=== PATIENT | female | born 1945 | race Caucasian/White ===

== ENCOUNTER 2021-01-30 11:47 | Inpatient (IN) ==
[2021-01-30 15:25] LABS: Basophils # 0.1 K/mcL (0.0-0.2); Basophils % 0.3 %; Hematocrit 26.7 % (35.3-44.9); Hemoglobin 8.2 g/dL (11.5-15.4); Immature Granulocytes % 2.4 % (0-4); Lymphocytes # 1.5 K/mcL (0.6-4.6); Lymphocytes % 7.3 %; Mean Corpuscular HGB Conc 30.7 g/dL (31.6-35.5); Mean Corpuscular Hemoglobin 26.4 pg (28.0-33.3); Mean Corpuscular Volume 85.9 fL (83.0-100.0); Mean Platelet Volume 10.7 fL (9.4-12.4); Monocytes # 2.3 K/mcL (0.0-1.3); Monocytes % 11.2 %; Neutrophils # 16.2 K/mcL (1.6-8.9); Nucleated Red Blood Cells 0.8 /100 WBC (0); Platelet Count 333 K/mcL (140-400); Red Blood Count 3.11 M/mcL (3.82-4.97); Red Cell Distribution Width 15.5 % (11.5-14.5); Segmented Neutrophils % 78.8 %; White Blood Count 20.5 K/mcL (4.3-11.1)
[2021-01-30] MEDS ORDERED: Pantoprazole 40 MG VIAL IVP ONE (15:38)
[2021-01-30] MEDS ORDERED: Ringers Solution, Lactated 1,000 ML IVC ONE ×2 (15:44)
[2021-01-30] MEDS ORDERED: Ringers Solution, Lactated 1,000 ML ONE (15:44)
[2021-01-30 16:09] LABS: INR 1.6; Prothrombin Time 17.8 Seconds (9.4-12.1)
[2021-01-30 16:20] LABS: Activated Partial Thrombo Time 26.6 Seconds (26.0-36.0)
[2021-01-30 16:29] LABS: Albumin 3.2 g/dL (3.5-5.7); Albumin/Globulin Ratio 1.1 (1.1-2.2); Bilirubin,Direct 0.2 mg/dL (0.0-0.2); Bilirubin,Indirect 0.4 mg/dL (0.0-1.0); Bilirubin,Total 0.6 mg/dL (0.3-1.0); Calcium 9.3 mg/dL (8.6-10.3); Globulin 2.8 g/dL (2.4-3.5); Magnesium 1.8 mg/dL (1.6-2.6); Phosphorous 3.5 mg/dL (2.7-4.5); Potassium 3.8 mEq/L (3.5-5.1); Troponin I 0.04 ng/mL (< 0.04)
[2021-01-30] MEDS: Pantoprazole 40 MG in 0.9 % Sodium Chloride Mini Bag 100 ML IVC SCH ×2 (17:12→21:08)
[2021-01-30 18:04] LABS: Bilirubin,Urine Negative (Negative); Blood,Urine Small (Negative); Clarity,Urine Clear (Clear); Color,Urine Light-Yellow (Yellow); Glucose,Urine (UA) Normal (Normal); Hyaline Casts,Urine Few per lpf (None Seen); Ketones,Urine Negative (Negative); Leukocyte Esterase,Urine Negative (Negative); Mucus,Urine Few per lpf (None-Few); Nitrite,Urine Negative (Negative); PH,Urine 5.5 pH Units (5.0-8.0); Protein,Urine Negative (Neg-Trace); RBC,Urine 0-3 per hpf (0-3); Squamous Epithelial Cell,Urine Few per hpf (None-Few); Urobilinogen,Urine Normal (Normal); WBC,Urine 0-3 per hpf (0-3)
[2021-01-30] MEDS ORDERED: Dextrose Gel 15 GM/37.5 ML TUBE PO PRN ×2 (18:26)
[2021-01-30] MEDS ORDERED: D5% in Water 1,000 ML IVC PRN (18:26)
[2021-01-30] MEDS ORDERED: *HR* Dextrose 50 % in Water (Vial) 50 ML VIAL IVP PRN (18:26)
[2021-01-30 20:16] LABS: Hematocrit 23.6 % (35.3-44.9); Hemoglobin 7.4 g/dL (11.5-15.4)
[2021-01-30] MEDS: Vancomycin Oral Soln 125 MG/2.5 ML UDC PO SCH (21:09)
[2021-01-30] MEDS ORDERED: 0.9 % Sodium Chloride 500 ML ONE (21:34)
[2021-01-30] MEDS ORDERED: Furosemide 20 MG/2 ML VIAL IVP ONE (21:59)
[2021-01-31] MEDS: Insulin LISPRO 300 UNITS/3 ML VIAL SUBQ SCH ×5 (00:27→23:18)
[2021-01-31] MEDS: Pantoprazole 40 MG in 0.9 % Sodium Chloride Mini Bag 100 ML IVC SCH ×2 (00:29→05:33)
[2021-01-31 04:01] LABS: VBG Ionized Calcium 1.21 mmol/L (1.15-1.35)
[2021-01-31 04:12] LABS: Basophils # 0.1 K/mcL (0.0-0.2); Basophils % 0.3 %; Hematocrit 26.3 % (35.3-44.9); Hemoglobin 8.6 g/dL (11.5-15.4); Immature Granulocytes % 1.5 % (0-4); Lymphocytes # 1.6 K/mcL (0.6-4.6); Lymphocytes % 9.5 %; Mean Corpuscular HGB Conc 32.7 g/dL (31.6-35.5); Mean Corpuscular Hemoglobin 28.1 pg (28.0-33.3); Mean Corpuscular Volume 85.9 fL (83.0-100.0); Mean Platelet Volume 10.6 fL (9.4-12.4); Monocytes % 12.3 %; Neutrophils # 12.6 K/mcL (1.6-8.9); Nucleated Red Blood Cells 1.3 /100 WBC (0); Platelet Count 258 K/mcL (140-400); Red Blood Count 3.06 M/mcL (3.82-4.97); Red Cell Distribution Width 14.8 % (11.5-14.5); Segmented Neutrophils % 76.4 %; White Blood Count 16.5 K/mcL (4.3-11.1)
[2021-01-31 04:38] LABS: Troponin I 0.05 ng/mL (< 0.04)
[2021-01-31 04:55] LABS: Calcium 8.7 mg/dL (8.6-10.3); Magnesium 1.8 mg/dL (1.6-2.6); Phosphorous 3.7 mg/dL (2.7-4.5); Potassium 2.8 mEq/L (3.5-5.1)
[2021-01-31] MEDS ORDERED: Acetaminophen IV 500 MG/50 ML BAG IVPB ONE (05:38)
[2021-01-31] MEDS ORDERED: Metoclopramide 10 MG/2 ML VIAL IVP ONE (06:00)
[2021-01-31] MEDS: Vancomycin Oral Soln 125 MG/2.5 ML UDC PO SCH ×4 (07:32→19:45)
[2021-01-31 12:20] LABS: Hematocrit 29.2 % (35.3-44.9)
[2021-01-31 12:38] LABS: Potassium 3.4 mEq/L (3.5-5.1)
[2021-01-31] MEDS ORDERED: D5% in Water 1,000 ML IVC PRN (12:48)
[2021-01-31] MEDS ORDERED: *HR* Dextrose 50 % in Water (Vial) 50 ML VIAL IVP PRN (12:48)
[2021-01-31] MEDS ORDERED: Dextrose Gel 15 GM/37.5 ML TUBE PO PRN ×2 (12:48)
[2021-01-31] MEDS ORDERED: Lidocaine -MPF 2% 5 ML VIAL SQ ONE (13:08)
[2021-01-31] MEDS ORDERED: *HR* Propofol 200 MG/20 ML VIAL IVP ONE (13:08)
[2021-01-31] MEDS ORDERED: Acetaminophen 325 MG TABLET PO ONE (23:08)
[2021-02-01 03:47] LABS: Basophils # 0.1 K/mcL (0.0-0.2); Basophils % 0.4 %; Hematocrit 28.4 % (35.3-44.9); Hemoglobin 8.9 g/dL (11.5-15.4); Immature Granulocytes % 2.1 % (0-4); Lymphocytes # 2.2 K/mcL (0.6-4.6); Lymphocytes % 11.8 %; Mean Corpuscular HGB Conc 31.3 g/dL (31.6-35.5); Mean Corpuscular Hemoglobin 27.4 pg (28.0-33.3); Mean Corpuscular Volume 87.4 fL (83.0-100.0); Mean Platelet Volume 10.7 fL (9.4-12.4); Monocytes # 2.4 K/mcL (0.0-1.3); Monocytes % 12.8 %; Neutrophils # 13.7 K/mcL (1.6-8.9); Nucleated Red Blood Cells 1.8 /100 WBC (0); Platelet Count 249 K/mcL (140-400); Red Blood Count 3.25 M/mcL (3.82-4.97); Red Cell Distribution Width 15.3 % (11.5-14.5); Segmented Neutrophils % 72.9 %; White Blood Count 18.8 K/mcL (4.3-11.1)
[2021-02-01 04:05] LABS: Calcium 9.1 mg/dL (8.6-10.3); Potassium 3.7 mEq/L (3.5-5.1)
[2021-02-01] MEDS: Insulin LISPRO 300 UNITS/3 ML VIAL SUBQ SCH ×4 (05:26→21:49)
[2021-02-01] MEDS ORDERED: Acetaminophen 325 MG TABLET PO ONE (05:30)
[2021-02-01] MEDS: Pantoprazole 40 MG VIAL IVP SCH (08:27)
[2021-02-01] MEDS: Furosemide 40 MG TABLET PO SCH (08:27)
[2021-02-01] MEDS: Vancomycin Oral Soln 125 MG/2.5 ML UDC PO SCH ×4 (08:27→21:58)
[2021-02-01] MEDS: amLODIPine 5 MG TABLET PO SCH (08:28)
[2021-02-01] MEDS ORDERED: Pantoprazole 40 MG VIAL IVP SCH (09:00)
[2021-02-01] MEDS: atenoloL 50 MG TABLET PO SCH (09:09)
[2021-02-01 10:43] LABS: Hematocrit 29.2 % (35.3-44.9); Hemoglobin 9.1 g/dL (11.5-15.4)
[2021-02-01] MEDS: Sucralfate 1 GM TABLET PO SCH ×3 (14:22→21:58)
[2021-02-01] MEDS: Acetaminophen 325 MG TABLET PO PRN (16:55)
[2021-02-01] MEDS: Pantoprazole 40 MG in 0.9 % Sodium Chloride Mini Bag 100 ML IVC SCH (20:05)
[2021-02-02] MEDS: Acetaminophen 325 MG TABLET PO PRN ×2 (00:58→20:49)
[2021-02-02 05:21] LABS: Basophils # 0.1 K/mcL (0.0-0.2); Basophils % 0.3 %; Eosinophils % 0.2 %; Hematocrit 28.2 % (35.3-44.9); Hemoglobin 8.9 g/dL (11.5-15.4); Immature Granulocytes % 1.9 % (0-4); Immature Platelets 10.1 % (1.1-6.1); Lymphocytes # 1.8 K/mcL (0.6-4.6); Mean Corpuscular HGB Conc 31.6 g/dL (31.6-35.5); Mean Corpuscular Hemoglobin 27.4 pg (28.0-33.3); Mean Corpuscular Volume 86.8 fL (83.0-100.0); Mean Platelet Volume 11.8 fL (9.4-12.4); Monocytes # 2.1 K/mcL (0.0-1.3); Neutrophils # 11.8 K/mcL (1.6-8.9); Nucleated Red Blood Cells 3.6 /100 WBC (0); Platelet Count 195 K/mcL (140-400); Red Blood Count 3.25 M/mcL (3.82-4.97); Red Cell Distribution Width 15.1 % (11.5-14.5); Segmented Neutrophils % 73.6 %
[2021-02-02 05:38] LABS: Magnesium 2.2 mg/dL (1.6-2.6); Phosphorous 4.1 mg/dL (2.7-4.5); Potassium 4.1 mEq/L (3.5-5.1)
[2021-02-02 05:52] LABS: Platelet Estimate Normal (Normal); Polychromasia 1+ (Not Present)
[2021-02-02] MEDS: Insulin LISPRO 300 UNITS/3 ML VIAL SUBQ SCH ×4 (09:24→20:50)
[2021-02-02] MEDS: Vancomycin Oral Soln 125 MG/2.5 ML UDC PO SCH ×4 (10:41→20:50)
[2021-02-02] MEDS: amLODIPine 5 MG TABLET PO SCH (10:42)
[2021-02-02] MEDS: atenoloL 50 MG TABLET PO SCH (10:42)
[2021-02-02] MEDS: Furosemide 40 MG TABLET PO SCH (10:42)
[2021-02-02] MEDS: Sucralfate 1 GM TABLET PO SCH ×4 (10:42→20:49)
[2021-02-02] MEDS: Lactobacillus 1 EACH CAP.SPRINK PO SCH (10:42)
[2021-02-02] MEDS: Pantoprazole 40 MG VIAL IVP SCH (10:43)
[2021-02-02] MEDS: Ondansetron 4 MG/2 ML VIAL IVP PRN ×2 (10:43→22:05)
[2021-02-02] MEDS: Ipratropium/Albuterol Neb 3 ML IH PRN (22:22)
[2021-02-03 01:14] LABS: Basophils # 0.1 K/mcL (0.0-0.2); Basophils % 0.3 %; Eosinophils % 0.1 %; Hematocrit 28.7 % (35.3-44.9); Immature Granulocytes % 1.9 % (0-4); Lymphocytes # 1.4 K/mcL (0.6-4.6); Lymphocytes % 8.9 %; Mean Corpuscular HGB Conc 31.4 g/dL (31.6-35.5); Mean Corpuscular Hemoglobin 27.4 pg (28.0-33.3); Mean Corpuscular Volume 87.5 fL (83.0-100.0); Monocytes # 2.3 K/mcL (0.0-1.3); Monocytes % 14.1 %; Nucleated Red Blood Cells 3.4 /100 WBC (0); Platelet Count 235 K/mcL (140-400); Red Blood Count 3.28 M/mcL (3.82-4.97); Red Cell Distribution Width 15.6 % (11.5-14.5); Segmented Neutrophils % 74.7 %; White Blood Count 16.1 K/mcL (4.3-11.1)
[2021-02-03 01:36] LABS: Calcium 8.7 mg/dL (8.6-10.3); Magnesium 2.1 mg/dL (1.6-2.6); Phosphorous 3.9 mg/dL (2.7-4.5); Potassium 3.6 mEq/L (3.5-5.1)
[2021-02-03] MEDS ORDERED: Nitroglycerin 0.4 MG TAB.SUBL SL PRN (01:43)
[2021-02-03] MEDS ORDERED: Furosemide 20 MG TABLET PO SCH (09:00)
[2021-02-03] MEDS: atenoloL 50 MG TABLET PO SCH (09:05)
[2021-02-03] MEDS: amLODIPine 5 MG TABLET PO SCH (09:05)
[2021-02-03] MEDS: Vancomycin Oral Soln 125 MG/2.5 ML UDC PO SCH ×4 (09:05→21:43)
[2021-02-03] MEDS: Sucralfate 1 GM TABLET PO SCH ×4 (09:05→21:48)
[2021-02-03] MEDS: Lactobacillus 1 EACH CAP.SPRINK PO SCH (09:05)
[2021-02-03] MEDS: Insulin LISPRO 300 UNITS/3 ML VIAL SUBQ SCH ×4 (09:06→21:42)
[2021-02-03] MEDS ORDERED: Perflutren Lipid Microsphere 1.3 ML in 0.9 % Sodium Chloride 8.7 ML IVP PRN (11:05)
[2021-02-03] MEDS: Ipratropium/Albuterol Neb 3 ML IH PRN (18:38)
[2021-02-03] MEDS ORDERED: Furosemide 20 MG/2 ML VIAL IVP SCH (21:00)
[2021-02-04 03:41] LABS: Basophils % 0.3 %; Eosinophils % 0.5 %; Nucleated Red Blood Cells 2.9 /100 WBC (0); Segmented Neutrophils % 75.2 %
[2021-02-04 03:42] LABS: Eosinophils # 0.1 K/mcL (0.0-0.6); Hematocrit 28.4 % (35.3-44.9); Hemoglobin 8.9 g/dL (11.5-15.4); Immature Granulocytes % 1.9 % (0-4); Lymphocytes # 1.2 K/mcL (0.6-4.6); Lymphocytes % 8.5 %; Mean Corpuscular HGB Conc 31.3 g/dL (31.6-35.5); Mean Corpuscular Hemoglobin 27.1 pg (28.0-33.3); Mean Corpuscular Volume 86.6 fL (83.0-100.0); Mean Platelet Volume 11.7 fL (9.4-12.4); Monocytes # 1.9 K/mcL (0.0-1.3); Monocytes % 13.6 %; Neutrophils # 10.5 K/mcL (1.6-8.9); Platelet Count 135 K/mcL (140-400); Red Blood Count 3.28 M/mcL (3.82-4.97); Red Cell Distribution Width 15.7 % (11.5-14.5)
[2021-02-04 03:50] LABS: Calcium 8.9 mg/dL (8.6-10.3); Magnesium 2.2 mg/dL (1.6-2.6); Phosphorous 3.5 mg/dL (2.7-4.5); Potassium 3.6 mEq/L (3.5-5.1)
[2021-02-04] MEDS: Acetaminophen 325 MG TABLET PO PRN (06:09)
[2021-02-04] MEDS: Sucralfate 1 GM TABLET PO SCH ×4 (06:13→21:25)
[2021-02-04] MEDS: Insulin LISPRO 300 UNITS/3 ML VIAL SUBQ SCH ×4 (09:35→21:24)
[2021-02-04] MEDS: amLODIPine 5 MG TABLET PO SCH (09:46)
[2021-02-04] MEDS: Vancomycin Oral Soln 125 MG/2.5 ML UDC PO SCH ×4 (09:47→21:25)
[2021-02-04] MEDS: Lactobacillus 1 EACH CAP.SPRINK PO SCH (09:47)
[2021-02-04] MEDS: atenoloL 50 MG TABLET PO SCH (09:47)
[2021-02-04] MEDS: Furosemide 20 MG/2 ML VIAL IVP SCH ×2 (09:47→21:25)
[2021-02-05 06:52] LABS: Hemoglobin 9.6 g/dL (11.5-15.4); Nucleated Red Blood Cells 2.3 /100 WBC (0)
[2021-02-05 06:54] LABS: Basophils % 0.3 %; Eosinophils # 0.3 K/mcL (0.0-0.6); Hematocrit 30.9 % (35.3-44.9); Immature Granulocytes % 1.5 % (0-4); Immature Platelets 4.6 % (1.1-6.1); Lymphocytes # 1.4 K/mcL (0.6-4.6); Lymphocytes % 9.2 %; Mean Corpuscular HGB Conc 31.1 g/dL (31.6-35.5); Mean Corpuscular Hemoglobin 27.2 pg (28.0-33.3); Mean Corpuscular Volume 87.5 fL (83.0-100.0); Mean Platelet Volume 11.2 fL (9.4-12.4); Monocytes # 2.1 K/mcL (0.0-1.3); Monocytes % 14.5 %; Neutrophils # 10.7 K/mcL (1.6-8.9); Platelet Count 195 K/mcL (140-400); Red Blood Count 3.53 M/mcL (3.82-4.97); Red Cell Distribution Width 15.7 % (11.5-14.5); Segmented Neutrophils % 72.5 %; White Blood Count 14.7 K/mcL (4.3-11.1)
[2021-02-05 07:08] LABS: Calcium 8.7 mg/dL (8.6-10.3); Phosphorous 3.6 mg/dL (2.7-4.5); Potassium 3.6 mEq/L (3.5-5.1)
[2021-02-05] MEDS: Sucralfate 1 GM TABLET PO SCH ×4 (08:01→20:44)
[2021-02-05] MEDS: amLODIPine 5 MG TABLET PO SCH (08:01)
[2021-02-05] MEDS: Vancomycin Oral Soln 125 MG/2.5 ML UDC PO SCH ×4 (08:01→20:45)
[2021-02-05] MEDS: Lactobacillus 1 EACH CAP.SPRINK PO SCH (08:02)
[2021-02-05] MEDS: atenoloL 50 MG TABLET PO SCH (08:02)
[2021-02-05] MEDS: Furosemide 20 MG/2 ML VIAL IVP SCH (08:02)
[2021-02-05] MEDS: Insulin LISPRO 300 UNITS/3 ML VIAL SUBQ SCH ×4 (08:03→20:45)
[2021-02-05] MEDS ORDERED: Isovue-370 500 ML BOTTLE IVP ONE (14:54)
[2021-02-05 16:02] LABS: Protein/Creatinine Ratio,Urine 0.15 mg/mg (0.00-0.20)
[2021-02-05] MEDS ORDERED: Furosemide 20 MG/2 ML VIAL IVP SCH (17:00)
[2021-02-05] MEDS: Furosemide 40 MG/4 ML VIAL IVP SCH (20:45)
[2021-02-06 06:26] LABS: Basophils % 0.2 %; Eosinophils # 0.2 K/mcL (0.0-0.6); Eosinophils % 1.6 %; Hematocrit 29.9 % (35.3-44.9); Hemoglobin 9.1 g/dL (11.5-15.4); Immature Granulocytes % 1.4 % (0-4); Lymphocytes # 1.3 K/mcL (0.6-4.6); Lymphocytes % 8.6 %; Mean Corpuscular HGB Conc 30.4 g/dL (31.6-35.5); Mean Corpuscular Hemoglobin 26.8 pg (28.0-33.3); Mean Corpuscular Volume 87.9 fL (83.0-100.0); Mean Platelet Volume 11.1 fL (9.4-12.4); Monocytes # 1.9 K/mcL (0.0-1.3); Monocytes % 12.7 %; Neutrophils # 11.1 K/mcL (1.6-8.9); Nucleated Red Blood Cells 1.1 /100 WBC (0); Platelet Count 272 K/mcL (140-400); Red Cell Distribution Width 15.9 % (11.5-14.5); Segmented Neutrophils % 75.5 %; White Blood Count 14.7 K/mcL (4.3-11.1)
[2021-02-06 06:47] LABS: Potassium 3.2 mEq/L (3.5-5.1)
[2021-02-06] MEDS: Lactobacillus 1 EACH CAP.SPRINK PO SCH (08:57)
[2021-02-06] MEDS: Sucralfate 1 GM TABLET PO SCH ×4 (08:57→21:17)
[2021-02-06] MEDS: Furosemide 40 MG/4 ML VIAL IVP SCH ×2 (08:58→21:18)
[2021-02-06] MEDS: Vancomycin Oral Soln 125 MG/2.5 ML UDC PO SCH ×4 (08:58→21:18)
[2021-02-06] MEDS: atenoloL 50 MG TABLET PO SCH (08:58)
[2021-02-06] MEDS: Azithromycin 500 MG in 0.9 % Sodium Chloride 250 ML IVPB SCH ×2 (08:59→10:24)
[2021-02-06] MEDS ORDERED: cefTRIAXone 1,000 MG in Water for inj. (sterile) 10 ML IVP SCH (09:00)
[2021-02-06] MEDS ORDERED: *HR* Rivaroxaban 15 MG TABLET PO SCH (09:00)
[2021-02-06] MEDS: Insulin LISPRO 300 UNITS/3 ML VIAL SUBQ SCH ×4 (09:00→21:18)
[2021-02-06 10:30] LABS: Adenovirus Not Detected (Not Detect); Bordetella Pertussis Not Detected (Not Detect); Chlamydophila pneumoniae Not Detected (Not Detect); Coronavirus 229E Not Detected (Not Detect); Coronavirus HKU1 Not Detected (Not Detect); Coronavirus NL63 Not Detected (Not Detect); Coronavirus OC43 Not Detected (Not Detect); Human Metapneumovirus Not Detected (Not Detect); Human Rhinovirus/Enterovirus Not Detected (Not Detect); Influenza A Subtype 2009 H1 Not Detected (Not Detect); Influenza B Not Detected (Not Detect); Mycoplasma pneumoniae Not Detected (Not Detect); Parainfluenza Virus 1 Not Detected (Not Detect); Parainfluenza Virus 2 Not Detected (Not Detect); Parainfluenza Virus 3 Not Detected (Not Detect); Parainfluenza Virus 4 Not Detected (Not Detect); Respiratory Syncytial Virus Not Detected (Not Detect); SARS-CoV-2 Not Detected (Not Detect)
[2021-02-06] MEDS ORDERED: Azithromycin 250 MG TABLET PO ONE (10:30)
[2021-02-06] MEDS: Ondansetron 4 MG/2 ML VIAL IVP PRN (16:12)
[2021-02-06] MEDS ORDERED: *HR* Rivaroxaban 10 MG TABLET PO SCH (17:00)
[2021-02-06] MEDS: *HR* Rivaroxaban 15 MG TABLET PO SCH (17:10)
[2021-02-07] MEDS: Sucralfate 1 GM TABLET PO SCH ×4 (06:13→22:51)
[2021-02-07] MEDS: Insulin LISPRO 300 UNITS/3 ML VIAL SUBQ SCH ×4 (07:36→21:24)
[2021-02-07] MEDS ORDERED: Perflutren Lipid Microsphere 1.3 ML in 0.9 % Sodium Chloride 8.7 ML IVP PRN (08:11)
[2021-02-07] MEDS: Lactobacillus 1 EACH CAP.SPRINK PO SCH (08:28)
[2021-02-07] MEDS: Furosemide 40 MG TABLET PO SCH ×2 (08:29→17:21)
[2021-02-07] MEDS: Vancomycin Oral Soln 125 MG/2.5 ML UDC PO SCH ×4 (08:29→21:24)
[2021-02-07] MEDS: *HR* Rivaroxaban 15 MG TABLET PO SCH ×2 (08:29→17:21)
[2021-02-07] MEDS: atenoloL 50 MG TABLET PO SCH (08:30)
[2021-02-07] MEDS ORDERED: *HR* LORazepam 0.5 MG TABLET PO ONE (08:48)
[2021-02-07] MEDS ORDERED: Azithromycin 250 MG TABLET PO SCH (10:00)
[2021-02-07] MEDS ORDERED: *HR* Rivaroxaban 10 MG TABLET PO SCH (17:00)
[2021-02-07 22:11] LABS: Basophils % 0.1 %; Eosinophils # 0.5 K/mcL (0.0-0.6); Eosinophils % 3.6 %; Hematocrit 30.4 % (35.3-44.9); Hemoglobin 9.3 g/dL (11.5-15.4); Immature Granulocytes % 1.1 % (0-4); Lymphocytes % 7.3 %; Mean Corpuscular HGB Conc 30.6 g/dL (31.6-35.5); Mean Corpuscular Hemoglobin 26.8 pg (28.0-33.3); Mean Corpuscular Volume 87.6 fL (83.0-100.0); Mean Platelet Volume 10.6 fL (9.4-12.4); Monocytes # 1.8 K/mcL (0.0-1.3); Monocytes % 12.9 %; Neutrophils # 10.5 K/mcL (1.6-8.9); Nucleated Red Blood Cells 0.5 /100 WBC (0); Platelet Count 314 K/mcL (140-400); Red Blood Count 3.47 M/mcL (3.82-4.97); Red Cell Distribution Width 15.9 % (11.5-14.5)
[2021-02-07 22:28] LABS: Potassium 2.9 mEq/L (3.5-5.1)
[2021-02-08 03:21] LABS: Lambda Qnt Free Light Chains 28.63 mg/L (5.71-26.30)
[2021-02-08 06:00] LABS: Basophils % 0.2 %; Eosinophils # 0.4 K/mcL (0.0-0.6); Eosinophils % 3.3 %; Hematocrit 28.3 % (35.3-44.9); Hemoglobin 8.7 g/dL (11.5-15.4); Immature Granulocytes % 0.7 % (0-4); Lymphocytes # 0.8 K/mcL (0.6-4.6); Lymphocytes % 7.6 %; Mean Corpuscular HGB Conc 30.7 g/dL (31.6-35.5); Mean Corpuscular Hemoglobin 26.9 pg (28.0-33.3); Mean Corpuscular Volume 87.6 fL (83.0-100.0); Mean Platelet Volume 10.5 fL (9.4-12.4); Monocytes # 1.4 K/mcL (0.0-1.3); Monocytes % 12.9 %; Neutrophils # 8.1 K/mcL (1.6-8.9); Nucleated Red Blood Cells 0.3 /100 WBC (0); Platelet Count 328 K/mcL (140-400); Red Blood Count 3.23 M/mcL (3.82-4.97); Segmented Neutrophils % 75.3 %; White Blood Count 10.8 K/mcL (4.3-11.1)
[2021-02-08 06:15] LABS: Calcium 8.9 mg/dL (8.6-10.3); Potassium 2.6 mEq/L (3.5-5.1)
[2021-02-08] MEDS ORDERED: Potassium Chloride 40 MEQ, Lidocaine 1% 2 ML in 0.9 % Sodium Chloride 500 ML IVPB ONE (06:30)
[2021-02-08] MEDS: Furosemide 40 MG TABLET PO SCH (07:37)
[2021-02-08] MEDS: Sucralfate 1 GM TABLET PO SCH ×4 (07:37→22:11)
[2021-02-08] MEDS: *HR* Rivaroxaban 15 MG TABLET PO SCH ×2 (07:37→17:01)
[2021-02-08] MEDS: Vancomycin Oral Soln 125 MG/2.5 ML UDC PO SCH ×4 (07:38→20:34)
[2021-02-08] MEDS: Lactobacillus 1 EACH CAP.SPRINK PO SCH (07:58)
[2021-02-08] MEDS: Insulin LISPRO 300 UNITS/3 ML VIAL SUBQ SCH ×4 (07:59→21:05)
[2021-02-08] MEDS: atenoloL 50 MG TABLET PO SCH (07:59)
[2021-02-08 08:17] LABS: Kappa Qnt Free Light Chains 46.34 mg/L (3.30-19.40)
[2021-02-08] MEDS: Acetaminophen 325 MG TABLET PO PRN (20:33)
[2021-02-09] MEDS: Sucralfate 1 GM TABLET PO SCH ×4 (08:07→21:32)
[2021-02-09] MEDS: atenoloL 50 MG TABLET PO SCH (08:08)
[2021-02-09] MEDS: Lactobacillus 1 EACH CAP.SPRINK PO SCH (08:08)
[2021-02-09] MEDS: Furosemide 40 MG TABLET PO SCH (08:08)
[2021-02-09] MEDS: *HR* Rivaroxaban 15 MG TABLET PO SCH ×2 (08:08→16:46)
[2021-02-09] MEDS: Vancomycin Oral Soln 125 MG/2.5 ML UDC PO SCH ×4 (08:09→21:32)
[2021-02-09] MEDS: Insulin LISPRO 300 UNITS/3 ML VIAL SUBQ SCH ×4 (08:15→21:32)
[2021-02-09 09:06] LABS: Hematocrit 28.7 % (35.3-44.9); Hemoglobin 8.8 g/dL (11.5-15.4); Mean Corpuscular HGB Conc 30.7 g/dL (31.6-35.5); Mean Platelet Volume 10.4 fL (9.4-12.4); Platelet Count 311 K/mcL (140-400); Red Blood Count 3.26 M/mcL (3.82-4.97); Red Cell Distribution Width 16.3 % (11.5-14.5); White Blood Count 10.9 K/mcL (4.3-11.1)
[2021-02-09 09:24] LABS: Potassium 2.8 mEq/L (3.5-5.1)
[2021-02-09] MEDS ORDERED: Potassium Chloride 40 MEQ, Lidocaine 1% 2 ML in 0.9 % Sodium Chloride 500 ML IVPB ONE (13:06)
[2021-02-09] MEDS: Ipratropium/Albuterol Neb 3 ML IH PRN (22:19)
[2021-02-10 05:13] LABS: Hematocrit 28.8 % (35.3-44.9); Hemoglobin 8.8 g/dL (11.5-15.4); Mean Corpuscular HGB Conc 30.6 g/dL (31.6-35.5); Mean Corpuscular Hemoglobin 26.8 pg (28.0-33.3); Mean Corpuscular Volume 87.8 fL (83.0-100.0); Mean Platelet Volume 10.5 fL (9.4-12.4); Platelet Count 332 K/mcL (140-400); Red Blood Count 3.28 M/mcL (3.82-4.97); Red Cell Distribution Width 16.5 % (11.5-14.5); White Blood Count 11.2 K/mcL (4.3-11.1)
[2021-02-10 05:33] LABS: Calcium 8.9 mg/dL (8.6-10.3); Potassium 3.1 mEq/L (3.5-5.1)
[2021-02-10 07:13] LABS: Beta Globulin (PEP) 0.92 g/dL (0.48-1.10)
[2021-02-10] MEDS: Insulin LISPRO 300 UNITS/3 ML VIAL SUBQ SCH ×4 (07:50→20:35)
[2021-02-10] MEDS: Sucralfate 1 GM TABLET PO SCH ×4 (07:52→22:33)
[2021-02-10] MEDS: *HR* Rivaroxaban 15 MG TABLET PO SCH ×2 (07:52→17:28)
[2021-02-10] MEDS: Vancomycin Oral Soln 125 MG/2.5 ML UDC PO SCH ×4 (08:01→20:39)
[2021-02-10] MEDS: Furosemide 40 MG TABLET PO SCH (08:01)
[2021-02-10] MEDS: Lactobacillus 1 EACH CAP.SPRINK PO SCH (08:02)
[2021-02-10] MEDS: atenoloL 50 MG TABLET PO SCH (08:02)
[2021-02-10 08:30] LABS: IFE Reflexed NOT DONE
[2021-02-11 03:31] LABS: Hematocrit 28.5 % (35.3-44.9); Hemoglobin 8.5 g/dL (11.5-15.4); Mean Corpuscular HGB Conc 29.8 g/dL (31.6-35.5); Mean Corpuscular Hemoglobin 26.3 pg (28.0-33.3); Mean Corpuscular Volume 88.2 fL (83.0-100.0); Platelet Count 337 K/mcL (140-400); Red Blood Count 3.23 M/mcL (3.82-4.97); Red Cell Distribution Width 16.8 % (11.5-14.5); White Blood Count 12.4 K/mcL (4.3-11.1)
[2021-02-11 03:49] LABS: Calcium 8.8 mg/dL (8.6-10.3); Potassium 3.1 mEq/L (3.5-5.1)
[2021-02-11] MEDS ORDERED: Potassium Chloride 40 MEQ, Lidocaine 1% 2 ML in 0.9 % Sodium Chloride 500 ML IVPB ONE (07:36)
[2021-02-11 08:33] LABS: Magnesium 2.2 mg/dL (1.6-2.6); Phosphorous 2.6 mg/dL (2.7-4.5)
[2021-02-11] MEDS: Insulin LISPRO 300 UNITS/3 ML VIAL SUBQ SCH ×4 (09:13→20:28)
[2021-02-11] MEDS: Vancomycin Oral Soln 125 MG/2.5 ML UDC PO SCH ×4 (09:15→20:24)
[2021-02-11] MEDS: atenoloL 50 MG TABLET PO SCH (09:15)
[2021-02-11] MEDS: Lactobacillus 1 EACH CAP.SPRINK PO SCH (09:15)
[2021-02-11] MEDS: Sucralfate 1 GM TABLET PO SCH ×4 (09:16→21:44)
[2021-02-11] MEDS: Furosemide 40 MG TABLET PO SCH (09:16)
[2021-02-11] MEDS: *HR* Rivaroxaban 15 MG TABLET PO SCH ×2 (09:16→16:47)
[2021-02-12 03:34] LABS: Hematocrit 28.1 % (35.3-44.9); Hemoglobin 8.4 g/dL (11.5-15.4); Mean Corpuscular HGB Conc 29.9 g/dL (31.6-35.5); Mean Corpuscular Hemoglobin 26.6 pg (28.0-33.3); Mean Corpuscular Volume 88.9 fL (83.0-100.0); Mean Platelet Volume 9.9 fL (9.4-12.4); Platelet Count 333 K/mcL (140-400); Red Blood Count 3.16 M/mcL (3.82-4.97)
[2021-02-12 04:00] LABS: Calcium 8.8 mg/dL (8.6-10.3); Potassium 3.4 mEq/L (3.5-5.1)
[2021-02-12] MEDS: Sucralfate 1 GM TABLET PO SCH (08:31)
[2021-02-12] MEDS: Vancomycin Oral Soln 125 MG/2.5 ML UDC PO SCH (08:31)
[2021-02-12] MEDS: Furosemide 40 MG TABLET PO SCH (08:31)
[2021-02-12] MEDS: atenoloL 50 MG TABLET PO SCH (08:31)
[2021-02-12] MEDS: *HR* Rivaroxaban 15 MG TABLET PO SCH (08:31)
[2021-02-12] MEDS: Lactobacillus 1 EACH CAP.SPRINK PO SCH (08:31)
[2021-02-12] MEDS: Insulin LISPRO 300 UNITS/3 ML VIAL SUBQ SCH (08:32)
[2021-02-27] MEDS ORDERED: *HR* Rivaroxaban 10 MG TABLET PO SCH (17:00)
== END 2021-02-12 11:50 | DRG 377 ==
LOC: ICNU 14:09 → SUATTDRO 14:09 → ICNU 14:35 → 3ANU 02-01 18:44
PROVIDERS: ADMIT Internal Medicine; ATTEND Internal Medicine
PROC: ENDOEBX (2021-01-31 09:40)